=== PATIENT | female | born 2000 | race Two or more races ===

== ENCOUNTER 2022-07-06 | Emergency (ER) | payer SELFPAY ==
[~2022-07-06] VITALS: Ht 172.7 cm; Wt 100.0 kg
[2022-07-06 03:40] VITALS: BP 110/67
== END 2022-07-06 03:50 | disposition home or self-care (01) ==
LOC: EMS 00:02
DX: T16.2XXA Foreign body in left ear, initial encounter (principal); X58.XXXA Exposure to other specified factors, initial encounter; Y93.89 Activity, other specified; Y92.89 Other specified places as the place of occurrence of the external cause; Y99.8 Other external cause status
CPT/HCPCS: 99284; Z7502